=== PATIENT | female | born 1985 ===

== ENCOUNTER 2018-05-12 14:59 | Emergency (ER) | payer MEDICAID, OTHER ==
[2018-05-12 15:01] VITALS: O2SAT 100
[2018-05-12] MEDS ORDERED: Sodium Chloride 0.9% 1,000 ML IV STA ×2 (15:09→16:17)
--- NOTE | 2018-05-12 15:12 | ED PDOC ---
Arrival/HPI - General Time Seen by Provider: 05/12/18 15:01 Historian: Patient - History of Present Illness Narrative History of Present Illness (Text): 05/12/18 15:08 A 33 year old female, with no significant past medical history, presents to the emergency room with a complaint of fever, body aches, sore throat, and bilateral carpal spasms. The patient states that she thought she had the flu and notes that she has experienced the carpal spasms in the past. She ambulated into the emergency room. The patient denies chills, headache, dizziness, cough, chest pain, shortness of breath, dyspnea on exertion, abdominal pain, nausea, vomiting, diarrhea, neck/back pain, urinary/bowel changes or any other complaint. Time/Duration: Other (This morning) Symptom Onset: Sudden Symptom Course: Unchanged Activities at Onset: Rest, Light Context: Home Past Medical History - Provider Review Nursing Documentation Reviewed: Yes Family/Social History - Physician Review Nursing Documentation Reviewed: Yes Family/Social History: No Known Family HX Allergies/Home Meds Allergies/Adverse Reactions: Allergies No Known Allergies Allergy (Unverified 05/12/18 15:08) Review of Systems - Physician Review All systems were reviewed & negative as marked: Yes - Review of Systems Constitutional: Fevers. absent: Night Sweats ENT: Sore Throat Respiratory: absent: SOB, Cough Cardiovascular: absent: Chest Pain, HSIEH Gastrointestinal: absent: Abdominal Pain, Stool Changes, Diarrhea, Nausea, Vomiting Genitourinary Female: absent: Urine Output Changes Musculoskeletal: Myalgias, Other (bilateral carpal spasms). absent: Back Pain, Neck Pain Neurological: absent: Headache, Dizziness Physical Exam Vital Signs Reviewed: Yes Vital Signs Temp Pulse Resp BP Pulse Ox 05/12/18 20:56 101 H 19 100 05/12/18 19:55 98.2 F 05/12/18 16:02 103.0 F H 05/12/18 15:00 103.0 F H 126 H 18 143/92 H 100 Temperature: Febrile Blood Pressure: Hypertensive Pulse: Tachycardic Respiratory Rate: Normal Appearance: Positive for: Well-Appearing, Non-Toxic, Comfortable Pain Distress: None Mental Status: Positive for: Alert and Oriented X 3 - Systems Exam Head: Present: Atraumatic, Normocephalic Pupils: Present: PERRL Extroacular Muscles: Present: EOMI Conjunctiva: Present: Normal Mouth: Present: Moist Mucous Membranes Neck: Present: Normal Range of Motion Respiratory/Chest: Present: Clear to Auscultation, Good Air Exchange. No: Respiratory Distress, Accessory Muscle Use Cardiovascular: Present: Regular Rate and Rhythm, Normal S1, S2. No: Murmurs Abdomen: No: Tenderness, Distention, Peritoneal Signs Back: Present: Normal Inspection Upper Extremity: Present: Normal ROM (Patient moving arms. Holding them up for more that 10 seconds. ), Neurovascularly Intact, Other (Bilateral carpal spasms. ) Lower Extremity: Present: Normal Inspection. No: Edema Neurological: Present: GCS=15, CN II-XII Intact, Speech Normal Skin: Present: Warm, Dry, Normal Color. No: Rashes Psychiatric: Present: Alert, Oriented x 3, Normal Insight, Normal Concentration Medical Decision Making ED Course and Treatment: 05/12/18 15:14 Impression: A 33 year old female presents to the emergency room complaining of fever, sore throat, body aches, and bilateral carpal spasms. Plan: -- Chest X-ray -- Labs -- Toradol and IV Fluids -- Urinalysis -- Reassess and disposition Progress Notes: Chest X-ray Dictator : Priyank Mckeon MD Report Date : 05/12/2018 16:16:26 IMPRESSION: No active disease. 05/12/18 18:57: Elevated wbc but strep positive. Treated for strep. Normal lactate. CMP shows low potassium, magnesium and phosphate which was repleted. She admits that she has not been eating well lately. On re-evaluation, patient states that she feels better and wants to go home. The carpal spasms have resolved. - Lab Interpretations Lab Results: 05/12/18 15:53 05/12/18 15:53 Lab Results 05/12/18 17:12: Grp A Beta Strep Ag Positive H 05/12/18 16:45: pO2 63 H, VBG pH 7.43, VBG pCO2 37.0 L, VBG HCO3 24.6, VBG Total CO2 25.7, VBG O2 Sat (Calc) 93.1 H, VBG Base Excess 0.5, VBG Potassium 2.8 L, Glucose 103, Lactate 1.2, FiO2 21.0, Sodium 141.0, Chloride 108.0 H, Venous Blood Potassium 2.8 L 05/12/18 15:53: Sodium 139, Potassium 3.4 L, Chloride 100, Carbon Dioxide 25, Anion Gap 17, BUN 8, Creatinine 0.6 L, Est GFR ( Amer) > 60, Est GFR (Non -Af Amer) > 60, Random Glucose 108, Calcium 9.2, Phosphorus 1.6 L, Magnesium 1.5 L, Total Bilirubin 0.6, AST 55 H, ALT 46, Alkaline Phosphatase 107, Total Protein 8.6 H, Albumin 4.7, Globulin 3.9, Albumin/Globulin Ratio 1.2, Lipase 76 05/12/18 15:53: Urine Color Yellow, Urine Appearance Clear, Urine pH 8.5, Ur Specific [place] 1.010, Urine Protein Negative, Urine Glucose (UA) Negative, Urine Ketones 15 H, Urine Blood Negative, Urine Nitrate Negative, Urine Bilirubin Negative, Urine Urobilinogen 0.2, Ur Leukocyte Esterase Negative 05/12/18 15:53: WBC 18.8 H, RBC 4.84, Hgb 11.8 L, Hct 35.5 L, MCV 73.3 L, MCH 24.4 L, MCHC 33.2, RDW 16.6 H, Plt Count 354, MPV 9.6, Gran % 84.8 H, Lymph % ( Auto) 8.1 L, [place] % (Auto) 6.9 H, Eos % (Auto) 0.0 L, Baso % (Auto) 0.2, Gran # 15.93 H, Lymph # (Auto) 1.5, [place] # (Auto) 1.3 H, Eos # (Auto) 0.0, Baso # (Auto ) 0.04 I have reviewed the lab results: Yes - RAD Interpretation Radiology Orders: 05/12/18 15:08 CHEST PORTABLE [RAD] Stat - Medication Orders Current Medication Orders: Potassium Chloride (Potassium Chloride 20 Meq/100 Ml) 20 meq in 100 mls @ 50 mls/hr IVPB Q2H YOANNA Stop: 05/12/18 22:44 Last Admin: 05/12/18 20:37 Dose: 50 mls/hr eMAR Start Stop Document 05/12/18 20:37 AD (Rec: 05/12/18 20:[address] [facility] [id number]) Intravenous Solution Start Date 05/12/18 Start Time 20:37 Discontinued Medications Acetaminophen (Tylenol 325mg Tab) 975 mg PO STAT STA Stop: 05/12/18 15:20 Last Admin: 05/12/18 16:02 Dose: 975 mg MAR Pain/Vitals Document 05/12/18 16:02 [email or web address] (Rec: 05/12/18 16:02 [email or web address] [id number]) Vitals Temperature (97.6 F-99.6 F) 103.0 F Temperature Source Oral Sodium Chloride (Sodium Chloride 0.9%) 1,000 mls @ 999 mls/hr IV .Q1H1M STA Stop: 05/12/18 16:09 Last Admin: 05/12/18 16:02 Dose: 999 mls/hr eMAR Start Stop Document 05/12/18 16:02 [email or web address] (Rec: 05/12/18 16:02 [email or web address] [id number]) Intravenous Solution Start Date 05/12/18 Start Time 16:02 End Date 05/12/18 Sodium Chloride (Sodium Chloride 0.9%) 1,000 mls @ 999 mls/hr IV .Q1H1M STA Stop: 05/12/18 17:17 Last Admin: 05/12/18 16:20 Dose: 999 mls/hr eMAR Start Stop Document 05/12/18 16:20 [email or web address] (Rec: 05/12/18 17:16 [email or web address] [id number]) Intravenous Solution Start Date 05/12/18 Start Time 16:20 Magnesium Sulfate/Dextrose (Magnesium Sulfate 1 Gm/100 Ml D5w) 1 gm in 100 mls @ 100 mls/hr IVPB ONCE ONE Stop: 05/12/18 17:20 Last Admin: 05/12/18 17:34 Dose: 100 mls/hr eMAR Start Stop Document 05/12/18 17:34 [email or web address] (Rec: 05/12/18 17:34 [email or web address] [id number]) Intravenous Solution Start Date 05/12/18 Start Time 17:34 Ketorolac Tromethamine (Toradol) 30 mg IVP STAT STA Stop: 05/12/18 15:11 Last Admin: 05/12/18 17:24 Dose: 30 mg MAR Pain Assessment Document 05/12/18 17:24 [email or web address] (Rec: 05/12/18 17:24 [email or web address] [id number]) Pain Reassessment Is this a pain reassessment? No Sleep Is patient sleeping during reassessment? No Presence of Pain Presence of Pain Yes Pain Scale Used Pain Scale Used Numeric Location Left, Right or Bilateral Bilateral Pain Location Body Site Hand Description Description Constant Intensity of Pain at present 5 Pain Behavior Facial Grimacing Aggravating Factors Changing Position Alleviating Factors/Management Medication Techniques Alleviating Factors Medication IVP Administration Document 05/12/18 17:24 [email or web address] (Rec: 05/12/18 17:24 [email or web address] [id number]) Charges for Administration # of IVP Administrations 1 Penicillin G Benzathine (Bicillin L-A Inj) 1,200,000 units IM STAT STA PRN Reason: Protocol Stop: 05/12/18 18:34 Last Admin: 05/12/18 20:15 Dose: 1,200,000 units IM Administration Charges Document 05/12/18 20:15 [email or web address] (Rec: 05/12/18 20:15 [email or web address] [id number]) Injection Site MAR Injection Site Left Gluteus Van Charges for Administration # of IM Administrations 1 Potassium Chloride (K-Dur 20 Meq Er Tab) 20 meq PO STAT STA Stop: 05/12/18 16:22 Last Admin: 05/12/18 17:33 Dose: 20 meq Potassium Chloride (K-Dur 20 Meq Er Tab) 20 meq PO STAT STA Stop: 05/12/18 18:36 Last Admin: 05/12/18 20:16 Dose: 20 meq Potassium Phos/Sodium Phos (Neutra-Phos) 2 pkt PO STAT STA Stop: 05/12/18 16:21 Last Admin: 05/12/18 17:34 Dose: 2 pkt - Scribe Statement The provider has reviewed the documentation as recorded by the Ange Cowart Provider Scribe Attestation: All medical record entries made by the Scribe were at my direction and personally dictated by me. I have reviewed the chart and agree that the record accurately reflects my personal performance of the history, physical exam, medical decision making, and the department course for this patient. I have also personally directed, reviewed, and agree with the discharge instructions and disposition. Disposition/Present on Arrival - Present on Arrival Any Indicators Present on Arrival: No - Disposition Have Diagnosis and Disposition been Completed?: Yes Diagnosis: Strep pharyngitis, Hypomagnesemia, Hypokalemia, Hypophosphatemia Disposition: HOME/ ROUTINE Disposition Time: 20:09 Patient Plan: Discharge Patient Problems: Current Active Problems Problem Status Onset Hypokalemia Acute Hypomagnesemia Acute Hypophosphatemia Acute Strep pharyngitis Acute Condition: GOOD Discharge Instructions (ExitCare): Hypokalemia, Strep Throat (DC), Low Magnesium Level (DC) Additional Instructions: Follow-up with PMD within 2 days. Return to ED if condition worsens. Eat balanced diet Forms: WORK NOTE
[2018-05-12 15:26] VITALS: BMI 22.2
[2018-05-12 16:10] LABS: BASO # 0.04 K/mm3 (0.0-2.0); BASO % 0.2 % (0.0-3.0); GRAN # 15.93 (1.4-6.5); GRAN % 84.8 % (50.0-68.0); HEMOGLOBIN 11.8 g/dL (12.0-16.0); LYMPH # 1.5 (1.2-3.4); LYMPH % 8.1 % (22.0-35.0); MEAN CELL VOLUME 73.3 fl (80.0-105.0); MEAN CORPUSCULAR HEMOGLOBIN 24.4 pg (25.0-35.0); MEAN CORPUSCULAR HGB CONC 33.2 g/dl (31.0-37.0); MEAN PLATELET VOLUME 9.6 fl (7.0-11.0); MONO # 1.3 (0.1-0.6); MONO % 6.9 % (1.0-6.0); RBC 4.84 10^6/uL (3.5-6.1); RED CELL DISTRIBUTION WIDTH 16.6 % (11.5-14.5); WHITE BLOOD COUNT 18.8 10^3/ul (4.5-11.0)
[2018-05-12 16:18] LABS: PH,URINE 8.5 (4.7-8.0); URINE BILIRUBIN NEGATIVE (NEGATIVE); URINE BLOOD NEGATIVE (NEGATIVE); URINE GLUCOSE (UA) NEGATIVE (NEGATIVE); URINE LEUKOCYTE ESTERASE NEGATIVE Leu/uL (NEGATIVE); URINE PROTEIN NEGATIVE mg/dL (<30 mg/dL); URINE UROBILINOGEN 0.2 E.U./dL (<1 E.U./dL)
--- NOTE | 2018-05-12 16:18 | RAD ---
Date of service: 05/12/2018 HISTORY: fever COMPARISON: No prior. FINDINGS: LUNGS: No active pulmonary disease. PLEURA: No significant pleural effusion identified, no pneumothorax apparent. CARDIOVASCULAR: Normal. OSSEOUS STRUCTURES: No significant abnormalities. VISUALIZED UPPER ABDOMEN: Normal. OTHER FINDINGS: None. IMPRESSION: No active disease.
[2018-05-12 16:19] LABS: ALB/GLOB RATIO 1.2 (1.1-1.8); ALBUMIN 4.7 g/dL (3.0-4.8); ALT/SGPT 46 U/L (7-56); AST/SGOT 55 U/L (14-36); BLOOD UREA NITROGEN 8 mg/dL (7-21); CALCIUM 9.2 mg/dL (8.4-10.5); GFR AFRICAN-AMERICAN > 60; GFR NON-AFRICAN AMERICAN > 60; LIPASE 76 U/L (23-300)
[2018-05-12 16:20] LABS: URINE APPEARANCE CLEAR (CLEAR); URINE COLOR YELLOW (YELLOW)
[2018-05-12] MEDS ORDERED: Potassium & Sodium Phosphate PO STA (16:20)
[2018-05-12] MEDS ORDERED: Potassium Chloride 20 mEq ER Tab PO STA ×2 (16:21→18:35)
[2018-05-12] MEDS ORDERED: Magnesium Sulfate 1 gm in D5W 1 GM/100 ML BAG IVPB ONE (16:21)
[2018-05-12 16:57] LABS: VENOUS BLOOD GAS BASE EXCESS 0.5 mmol/L (0.0-2.0); VENOUS BLOOD GAS PO2 63 mm/Hg (30-55); VENOUS BLOOD PH 7.43 (7.32-7.43)
[2018-05-12] MEDS ORDERED: Penicillin G Benzathine 1.2 Mill Unit/2 ml Syr IM STA (18:33)
[2018-05-12 19:55] VITALS: TEMP 98.2
[2018-05-12 22:30] VITALS: BP 138/82; PULSE 100; RESP 18
== END 2018-05-12 23:26 | disposition home or self-care (01) ==
LOC: MERGE 14:59 → ED 14:59
DX: J02.0 Streptococcal pharyngitis (principal); E83.42 Hypomagnesemia; E87.6 Hypokalemia; E83.39 Other disorders of phosphorus metabolism
CPT/HCPCS: 71045; 80053; 81003; 82803; 83690; 83735; 84100; 85025; 87040; 87430; 96372; 96374; 99283; J0561; J1885; J3475; J3480; J7030